=== PATIENT | male | born 1975 | race Caucasian/White ===

== ENCOUNTER → 2021-11-23 16:31 | Outpatient (BNVA) | payer BC, SELFPAY | PROVIDERS: PCP Nurse Practitioner; Visit Provider Nurse Practitioner Family | DX: B36.9 Superficial mycosis, unspecified (principal); Z13.6 Encounter for screening for cardiovascular disorders | CPT/HCPCS: 80053; 80061; 84443; 85025 ==

== ENCOUNTER 2023-11-20 14:05 | Outpatient (CLI) | payer BC, SELFPAY ==
--- NOTE | 2023-11-20 14:30 | MR_ITS ---
WS: [id number] MRI LUMBAR SPINE NONCONTRAST TECHNIQUE: Sagittal T1, T2 and STIR imaging. Axial T1 and T2 imaging. CLINICAL INFORMATION: M54.50 - Low back pain, unspecified COMPARISON: None. FINDINGS: Mild lumbar curve. No acute compression. L1-L2: Mild facet arthropathy. Spinal canal and foramina are patent. L2-L3: Mild annular bulging. Spinal canal and foramina are patent. Mild facet arthropathy. L3-L4: Small LEFT proximal foraminal protrusion with mild LEFT foraminal narrowing. RIGHT foramen is patent. Mild facet arthropathy. L4-L5: LEFT foraminal protrusion impinges the exiting LEFT L4 nerve root with moderate LEFT foraminal narrowing. RIGHT foramen is patent. Moderate facet arthropathy. L5-S1: Annular bulge with a shallow central protrusion and slight effacement of the ventral thecal sa c. Mild facet arthropathy. LEFT foraminal protrusion impinges the exiting LEFT L5 nerve root with mod erate LEFT foraminal narrowing. Visualized pelvic bony structures: Normal. Paravertebral soft tissues: Normal. Slightly aneurysmal infrarenal abdominal aorta measuring 2.2 x 2.3 cm AP by transverse Partially visualized small RIGHT renal cyst. MR/MR lumbar spine wo con* [id number] IMPRESSION: 1. Mild lumbar curve. No acute compression. 2. Prominent LEFT foraminal protrusion impinges the exiting LEFT L4 nerve root . Moderate LEFT foraminal narrowing. 3. LEFT foraminal protrusion L5-S1 impinges the exiting LEFT L5 nerve root wit h moderate LEFT foraminal narrowing. 4. Small LEFT foraminal protrusion L3-4 slightly contacts the adjacent LEFT L3 nerve root. 5. Mild to moderate facet arthropathy L3-L5.
== END 2023-11-20 14:06 | disposition home or self-care (01) ==
PROVIDERS: PCP Nurse Practitioner Family; Visit Provider Nurse Practitioner Family
DX: M99.63 Osseous and subluxation stenosis of intervertebral foramina of lumbar region (principal); M54.50 Low back pain, unspecified; G89.29 Other chronic pain; M51.36 Other intervertebral disc degeneration, lumbar region; R20.0 Anesthesia of skin; R20.2 Paresthesia of skin; M53.86 Other specified dorsopathies, lumbar region
CPT/HCPCS: 72148

== ENCOUNTER 2023-12-01 06:00 | Outpatient (RCR) | payer BC, SELFPAY | END 2023-12-30 23:59 | disposition home or self-care (01) | LOC: APT 06:00 | PROVIDERS: PCP Nurse Practitioner Family; Visit Provider Surgery | DX: M48.061 Spinal stenosis, lumbar region without neurogenic claudication (principal) | CPT/HCPCS: 97110; 97161 ==

== ENCOUNTER 2023-12-31 06:00 | Outpatient (RCR) | payer BC, SELFPAY | END 2024-01-30 23:59 | disposition home or self-care (01) | LOC: APT 06:00 | PROVIDERS: PCP Nurse Practitioner Family; Visit Provider Surgery | DX: M48.061 Spinal stenosis, lumbar region without neurogenic claudication (principal) | CPT/HCPCS: 97110; 97112; 97530 ==

== ENCOUNTER 2024-08-30 05:00 | Outpatient (RCR) | payer OTHER, SELFPAY | END 2024-09-28 23:59 | disposition home or self-care (01) | LOC: APT 05:00 | PROVIDERS: Visit Provider Orthopaedic Surgery | DX: S39.012D Strain of muscle, fascia and tendon of lower back, subsequent encounter (principal); X58.XXXD Exposure to other specified factors, subsequent encounter | CPT/HCPCS: 97110; 97112; 97530 ==